=== PATIENT | male | born 1955 | race Caucasian/White ===

== ENCOUNTER 2016-11-06 07:04 | Emergency (ER) | payer BC, OTHER ==
[~2016-11-06] VITALS: Ht 182.9 cm; Wt 111.1 kg
--- NOTE | 2016-11-06 07:19 | ED Fall/Injury ---
General Stated Complaint: SURGERY SITE COMPLICATIONS Source: patient, family Exam Limitations: no limitations History of Present Illness Time seen by provider: 07:10 Initial Comments Patient had surgery yesterday around noon and umbilical hernia repair with Dr. Morales at [place]. He was doing okay at the time he departed that after he got home and the nausea medicines wore off he started having a lot of nausea and vomiting and is feeling very puny. This pain was fairly well controlled with the hydrocodone at home. They'll the night he got up because of the nausea and had a fall and landed with his belly right on the site where he had the umbilical repair on the arm of a couch and then his family member says she found him stiff as a board laying on the floor for a few seconds unable to respond to any questions. He states he did not lose consciousness. However he feels that the nausea is getting better. He rates his pain as a 3 out of 10 and took a hydrocodone prior to coming to the ER. EMS reports his vitals been stable. When they sat him up on the side of the bed a lot of blood poured from the wound. They placed a pressure dressing over the umbilicus. The patient denies chest pain but states he is now short of breath. He states that his abdomen is no more distended today than yesterday but his family member says this is much more distended. He says he has little to no nausea at this time as pain is under control and he was able to drink some Gatorade last night and keep it down without throwing up prior to the fall. He states he did not hit his head. Patient also reports that he has not had to urinate since prior to surgery yesterday morning. weighs 245# per pt. PCP Dr Regan in [place], [place]. Allergies and Home Medications Allergies Uncoded Allergies: SULFA (Allergy, Severe, 11/06/16) Constitutional: No chills, No fever, No malaise Eyes: Denies Blurred Vision, Denies Drainage Ears, Nose, Mouth, Throat: denies nose pain, denies nose discharge, denies epistaxis Respiratory: No cough, short of breath, No wheezing Cardiovascular: No chest pain, No edema, No syncope Gastrointestinal: see HPI, abdominal pain, No constipation, No diarrhea, nausea , vomiting Genitourinary: decreased output (last urine was prior to Surgery), No dysuria, No frequency, hesitancy, No incontinence Musculoskeletal: No back pain, No joint pain Skin: No pruritus, No rash Psychiatric/Neurological: Denies Headache, Denies Numbness Past [id number]-Fecdwd Hx Patient Social History Alcohol Use: Denies Use Recreational Drug Use: No Smoking Status: Never a Smoker Physical Exam Vital Signs Capillary Refill : General Appearance: WD/WN, no apparent distress HEENT: PERRL/EOMI, normal ENT inspection Neck: non-tender, supple, normal inspection Cardiovascular: normal peripheral pulses, regular rate, rhythm, no edema Respiratory: chest non-tender, lungs clear, normal breath sounds Peripheral Pulses: 3+ Dorsalis Pedis (R), 3+ Left Dors-Pedis (L), 3+ Radial Pulses (R), 3+ Radial Pulses (L) Gastrointestinal: normal bowel sounds, no organomegaly, no pulsatile mass, distended Back: normal inspection, no CVA tenderness, no vertebral tenderness Extremities: normal range of motion, non-tender, normal inspection, no pedal edema, no calf tenderness Neurologic/Psychiatric: 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 II-XII nml as tested, alert, oriented x 3 Skin: normal color, warm/dry, other (surgical wound around umbilicus is approximated clean with oozing of small amount of bright red blood and tender to palpation.) Progress/Results/Core Measures Results/Orders Lab Results Laboratory Tests Test 11/06/16 07:10 11/06/16 07:33 11/06/16 07:40 11/06/16 09:28 Range/Units White Blood Count 29.2 H 4.3-11.0 10^3/uL Red Blood Count 3.87 L 4.35-5.85 10^6/uL Hemoglobin 11.2 L 13.3-17.7 G/DL Hematocrit 34 L 40-54 % Mean Corpuscular Volume 87 80-99 FL Mean Corpuscular Hemoglobin 29 25-34 PG Mean Corpuscular Hemoglobin Concent 33 32-36 G/DL Red Cell Distribution Width 13.9 10.0-14.5 % Platelet Count 269 130-400 10^3/uL Mean Platelet Volume 10.7 H 7.4-10.4 FL Neutrophils (%) (Auto) 84 H 42-75 % Lymphocytes (%) (Auto) 5 L 12-44 % Monocytes (%) (Auto) 11 0-12 % Eosinophils (%) (Auto) 0 0-10 % Basophils (%) (Auto) 0 0-10 % Neutrophils # (Auto) 24.7 H 1.8-7.8 X 10^3 Lymphocytes # (Auto) 1.5 1.0-4.0 X 10^3 Monocytes # (Auto) 3.1 H 0.0-1.0 X 10^3 Eosinophils # (Auto) 0.0 0.0-0.3 10^3/uL Basophils # (Auto) 0.0 0.0-0.1 10^3/uL Neutrophils % (Manual) 79 % Lymphocytes % (Manual) 5 % Monocytes % (Manual) 13 % Eosinophils % (Manual) 3 % Blood Morphology Comment NORMAL Sodium Level 137 135-145 MMOL/L Potassium Level 4.2 3.6-5.0 MMOL/L Chloride Level 103 98-107 MMOL/L Carbon Dioxide Level 18 L 21-32 MMOL/L Anion Gap 16 H 5-14 MMOL/L Blood Urea Nitrogen 24 H 7-18 MG/DL Creatinine 2.26 H 0.60-1.30 MG/DL Estimat Glomerular Filtration Rate 30 BUN/Creatinine Ratio 11 Glucose Level 188 H 70-105 MG/DL Calcium Level 8.7 8.5-10.1 MG/DL Phosphorus Level 4.0 2.3-4.7 MG/DL Magnesium Level 2.0 1.8-2.4 MG/DL Total Bilirubin 0.4 0.1-1.0 MG/DL Aspartate Amino Transf (AST/SGOT) 11 5-34 U/L Alanine Aminotransferase (ALT/SGPT) 24 0-55 U/L Alkaline Phosphatase 38 L 40-136 U/L Total Protein 6.4 6.4-8.2 G/DL Albumin 4.0 3.2-4.5 G/DL Lactic Acid Level 4.35 *H 0.50-2.00 MMOL/L Urine Color YELLOW Urine Clarity SLIGHTLY CLOUDY Urine pH 5 5-9 Urine Specific [place] 1.020 1.016-1.022 Urine Protein 1+ H NEGATIVE Urine Glucose (UA) 2+ H NEGATIVE Urine Ketones NEGATIVE NEGATIVE Urine Nitrite NEGATIVE NEGATIVE Urine Bilirubin NEGATIVE NEGATIVE Urine Urobilinogen NORMAL NORMAL MG/DL Urine Leukocyte Esterase NEGATIVE NEGATIVE Urine RBC (Auto) NEGATIVE NEGATIVE Urine RBC NONE /HPF Urine WBC 0-2 /HPF Urine Squamous Epithelial Cells 0-2 /HPF Urine Crystals NONE /LPF Urine Bacteria NEGATIVE /HPF Urine Casts PRESENT /LPF Urine Hyaline Casts 0-2 H /LPF Urine Mucus SMALL H /LPF Urine Culture Indicated NO My Orders Orders - ANKUSH JAQUEZ Saline Lock/Iv-Start (11/06/16 07:20) Cbc With Automated Diff (11/06/16 07:20) Comprehensive Metabolic Panel (11/06/16 07:20) Lactic Acid Analyzer (11/06/16 07:20) Magnesium (11/06/16 07:20) Ua Culture If Indicated (11/06/16 07:20) Type And Screen (11/06/16 07:20) Phosphorus (11/06/16 07:20) Chest 1 View, Ap/Pa Only (11/06/16 07:20) Vital Signs: Special (11/06/16 07:20) Consent-Obtain Consent For (11/06/16 07:20) Monitor S/S Transfusion Reacti (11/06/16 07:20) Ns Iv 500 Ml (Sodium Chloride 0.9%) (11/06/16 07:20) Saline Lock/Iv-Start (11/06/16 07:20) Ns Iv 1000 Ml (Sodium Chloride 0.9%) (11/06/16 07:20) Barrett Cath Insertion (11/06/16 07:25) Lidocaine 2% (Urojet) (Xylocaine Urojet) (11/06/16 07:30) Manual Differential (11/06/16 07:10) Blood Culture (11/06/16 07:39) Ct Abdomen/Pelvis Wo (11/06/16 07:20) Saline Lock/Iv-Start (11/06/16 07:57) Ns Iv 500 Ml (Sodium Chloride 0.9%) (11/06/16 07:57) Ns Iv 1000 Ml (Sodium Chloride 0.9%) (11/06/16 07:57) Ns Iv 1000 Ml (Sodium Chloride 0.9%) (11/06/16 08:30) Vancomycin Injection (Vancomycin Injecti (11/06/16 08:45) Ampicillin/Sulbactam Injection (Unasyn 1 (11/06/16 08:45) Medications Given in ED Current Medications Medications Dose Ordered Sig/Rahel Route Start Time Stop Time Status Last Admin Dose Admin Lidocaine HCl 10 ml ONCE ONCE TOP 11/06/16 07:30 11/06/16 07:31 DC 11/06/16 07:35 10 ML Sodium Chloride 1,000 ml @ 0 mls/hr Q0M ONCE IV 11/06/16 07:20 11/06/16 07:24 DC 11/06/16 07:20 1,000 MLS/HR Sodium Chloride 1,000 ml @ 0 mls/hr Q0M ONCE IV 11/06/16 07:57 11/06/16 07:59 DC 11/06/16 08:30 1,000 MLS/HR Vancomycin HCl 1000 mg/Sodium Chloride 250 ml @ 250 mls/hr ONCE ONCE IV 11/06/16 08:45 11/06/16 09:44 11/06/16 09:23 250 MLS/HR Progress Note #1: Time: 07:24 Progress Note Abdominal distention with bleeding from the surgical wound site. Possible he has injured it in the fall. We'll type and screen and get appropriate labs. We' ll get a CT of his abdomen with contrast and a liter fluids. His vitals are okay except for tachycardia. We'll place a Barrett catheter obtain a UA start working on his urinary retention Progress Note #2: Time: 09:52 Progress Note Patient was out found to have a high lactate as well as increased white blood cell count which could be from shock of surgery and fall and reinjury or could be from infection. With his history of mild shortness of breath and urinary retention there is some concern he may be having a UTI. 30 mils per kilogram were given and thinking Unasyn were started. Spoke with the surgery team and he was accepted as an ER to ER transfer for their evaluation and further management. The patient is stable at this time his blood pressures always been good. Diagnostic Imaging Diagonstic Imaging: Xray Plain Films/CT/US/NM/MRI: chest Comments [facility]IA [facility], [facility]. [place], [place] NAME: CECILIA FERRARI Hussain [facility] REC#: [id number] PT STATUS: REG ER : 1955 PHYSICIAN: ANKUSH JAQUEZ MD ADMIT DATE: 11/06/16/ER Draft Date of Exam:11/06/16 CHEST 1 VIEW, AP/PA ONLY INDICATION: Bloating and bleeding from surgical site. No prior examinations are available for comparison. FINDINGS: The heart size, mediastinal configuration, and pulmonary vascularity are within normal limits. There is no pleural effusion, pneumothorax, or pneumonia. The osseous structures are unremarkable. IMPRESSION: No acute cardiopulmonary abnormality. Dictated on workstation # [id number] Dict: 11/06/16 0828 Trans: 11/06/16 0842 [facility] [id number] Interpreted by: BARON TRACEY Electronically signed by: Reviewed: Reviewed by Me, Discussed w/Radiologist Diagonstic Imaging: CT Plain Films/CT/US/NM/MRI: abdomen Comments Non contrast. VIA [place], [place] NAME: CECILIA FERRARI [facility] REC#: [id number] PT STATUS: REG ER : 1955 PHYSICIAN: ANKUSH JAQUEZ MD ADMIT DATE: 11/06/16/ER Draft Date of Exam:11/06/16 CT ABDOMEN/PELVIS WO PROCEDURE: CT abdomen and pelvis without contrast. TECHNIQUE: Multiple contiguous axial images were obtained through the abdomen and pelvis without the use of intravenous contrast. INDICATION: Recent hernia surgery with bleeding from surgical site. There is also bloating. Contrast was not administered due to elevated creatinine. FINDINGS: The heart size is normal. There is some atelectasis and/or pneumonitis in both lung bases. The liver is normal in size. There is a cyst in the right lobe of the liver. There is no biliary ductal dilatation. Gallbladder is unremarkable. There is some perihepatic ascites. The spleen is unremarkable. There is perisplenic ascites. The pancreas and adrenal glands are unremarkable. There are chronic inflammatory changes about the kidneys bilaterally. The aorta is nonaneurysmal. The bowel gas pattern is nonspecific. There is some hyperdense fluid in the lower abdomen suspect for hematoperitoneum. There is a Barrett catheter in the bladder. Bowel gas pattern is nonspecific. There are bilateral inguinal hernias containing omental fat left greater than right. IMPRESSION: Moderate amount of hematoperitoneum in the lower abdominal cavity. Additionally, there is some more low-density perihepatic, perisplenic, and pelvic fluid. This may simply be postoperative. Recommend clinical correlation. Recent umbilical hernia repair. There is minimal induration in the anterior abdominal wall. Benign hepatic cyst. Barrett catheter in the bladder. Bilateral inguinal hernias left greater than right both containing only omental fat. These findings were conveyed directly to Dr. Jaquez in the [place] ER. Dictated on workstation # [id number] Dict: 11/06/16 0809 Trans: 11/06/16 0854 [id number] Interpreted by: BARON TRACEY Electronically signed by: Reviewed: Reviewed by Me, Discussed w/Radiologist Consults Consults #1: Consulting Physician: JOSE BLAKE DO Consults Notes Spoke wtih Dr Blake. He asked that I contact the Surgeon first adn if we want to keep the pt here he will come in and see the pt. 0955: Closed loop that the pt is being Transfered to [place] ED. Consults #2: Consults Notes 0900: Called [facility] and left a message. Trying to get in touch with the Surgeon , Dr Morales. 0930: Dr Blake called back to check in on Pt. Pt stable 0935: Carolina gale one-call [place] returned call. Dr Miller who is taking Call discussed pt and wants him sent ER to ER. 0940: Spoke to ER Dr. Nick. Explained the case adn he will be happy to see the pt. Departure Impression Impression: Primary Impression: Abdominal wall pain Additional Impressions: Hemoperitoneum Severe sepsis Disposition: 02 XFER SHT-TRM HOSP ([place] ED) Condition: Stable Transfer Transfer Notes Transfer by ground [facility] EMS to [place] ER. Dr. Nick accepting. Dr. Miller, General Surgery is covering for Dr. Morales Transfer Time: 09:48 Transfer Facility: [facility] Method of Transfer: EMS ANKUSH JAQUEZ Nov 06, 2016 07:19
[2016-11-06] MEDS ORDERED: NS IV 500 ML 500 ML IV SCH (07:20)
[2016-11-06] MEDS ORDERED: NS IV 1000 ML 1,000 ML IV ONE ×2 (07:20→07:57)
[2016-11-06 07:30] LABS: BASOPHILS % (AUTO) 0 % (0-10); EOSINOPHILS % (AUTO) 0 % (0-10); LYMPHOCYTES # (AUTO) 1.5 X 10^3 (1.0-4.0); LYMPHOCYTES % (AUTO) 5 % (12-44); MEAN CORPUSCULAR HEMOGLOBIN 29 PG (25-34); MEAN CORPUSCULAR HGB CONC 33 G/DL (32-36); MEAN CORPUSCULAR VOLUME 87 FL (80-99); MEAN PLATELET VOLUME 10.7 FL (7.4-10.4); MONOCYTES # (AUTO) 3.1 X 10^3 (0.0-1.0); MONOCYTES % (AUTO) 11 % (0-12); NEUTROPHILS # (AUTO) 24.7 X 10^3 (1.8-7.8); NEUTROPHILS % (AUTO) 84 % (42-75); PLATELET COUNT 269 10^3/uL (130-400); RED BLOOD COUNT 3.87 10^6/uL (4.35-5.85); RED CELL DISTRIBUTION WIDTH 13.9 % (10.0-14.5); WHITE BLOOD COUNT 29.2 10^3/uL (4.3-11.0)
[2016-11-06] MEDS ORDERED: LIDOCAINE UROJET 2% GEL 10 ML PKG TOP ONE (07:30)
[2016-11-06 07:44] LABS: BILIRUBIN,TOTAL 0.4 MG/DL (0.1-1.0); CALCIUM 8.7 MG/DL (8.5-10.1); CREATININE SERUM 2.26 MG/DL (0.60-1.30); POTASSIUM 4.2 MMOL/L (3.6-5.0); TOTAL PROTEIN 6.4 G/DL (6.4-8.2)
[2016-11-06] MEDS ORDERED: NS IV 500 ML 500 ML IV ONE (07:57)
[2016-11-06 08:08] LABS: BILIRUBIN,URINE NEGATIVE (NEGATIVE); KETONES,URINE NEGATIVE (NEGATIVE); LEUKOCYTE ESTERASE ,URINE NEGATIVE (NEGATIVE); NITRITE,URINE NEGATIVE (NEGATIVE); PH,URINE 5 (5-9); PROTEIN,URINE 1+ (NEGATIVE); UROBILINOGEN,URINE NORMAL (NORMAL)
[2016-11-06 08:21] LABS: HYALINE CASTS, URINE 0-2 /LPF; SQUAMOUS EPITHELIAL CELL,UR 0-2 /HPF; WBC,URINE 0-2 /HPF
[2016-11-06] MEDS ORDERED: NS IV 1000 ML 1,000 ML IV SCH (08:30)
[2016-11-06 08:40] LABS: EOSINOPHILS % (MANUAL) 3 %; LYMPHOCYTES % (MANUAL) 5 %; NEUTROPHILS % (MANUAL) 79 %
--- NOTE | 2016-11-06 08:42 | Diagnostic Imaging Report ---
INDICATION: Bloating and bleeding from surgical site. No prior examinations are available for comparison. FINDINGS: The heart size, mediastinal configuration, and pulmonary vascularity are within normal limits. There is no pleural effusion, pneumothorax, or pneumonia. The osseous structures are unremarkable. IMPRESSION: No acute cardiopulmonary abnormality. Dictated by: Dictated on workstation # [id number]
[2016-11-06] MEDS ORDERED: AMPICILLIN/SULBACTAM INJECTION 1.5 GM in NS (IVPB) 50 ML IV ONE (08:45)
[2016-11-06] MEDS ORDERED: VANCOMYCIN INJECTION 1,000 MG in NS (IVPB) 250 ML IV ONE (08:45)
--- NOTE | 2016-11-06 08:55 | Diagnostic Imaging Report ---
PROCEDURE: CT abdomen and pelvis without contrast. TECHNIQUE: Multiple contiguous axial images were obtained through the abdomen and pelvis without the use of intravenous contrast. INDICATION: Recent hernia surgery with bleeding from surgical site. There is also bloating. Contrast was not administered due to elevated creatinine. FINDINGS: The heart size is normal. There is some atelectasis and/or pneumonitis in both lung bases. The liver is normal in size. There is a cyst in the right lobe of the liver. There is no biliary ductal dilatation. Gallbladder is unremarkable. There is some perihepatic ascites. The spleen is unremarkable. There is perisplenic ascites. The pancreas and adrenal glands are unremarkable. There are chronic inflammatory changes about the kidneys bilaterally. The aorta is nonaneurysmal. The bowel gas pattern is nonspecific. There is some hyperdense fluid in the lower abdomen suspect for hematoperitoneum. There is a Barrett catheter in the bladder. Bowel gas pattern is nonspecific. There are bilateral inguinal hernias containing omental fat left greater than right. IMPRESSION: Moderate amount of hematoperitoneum in the lower abdominal cavity. Additionally, there is some more low-density perihepatic, perisplenic, and pelvic fluid. This may simply be postoperative. Recommend clinical correlation. Recent umbilical hernia repair. There is minimal induration in the anterior abdominal wall. Benign hepatic cyst. Barrett catheter in the bladder. Bilateral inguinal hernias left greater than right both containing only omental fat. These findings were conveyed directly to Dr. Jaquez in the [facility]. Dictated by: Dictated on workstation # [id number]
[2016-11-06] MEDS ORDERED: LISI-552 (10:05)
[2016-11-06] MEDS ORDERED: HYDR12.56 (10:05)
[2016-11-06] MEDS ORDERED: HYDR-3812 (10:05)
[2016-11-06 10:38] VITALS: BP 111/81
== END 2016-11-06 10:38 | disposition short-term general hospital (02) ==
LOC: EDUNIT# 07:04 → ER 07:08
DX: T81.4XXA Infection following a procedure, initial encounter (principal); K91.840 Postprocedural hemorrhage of a digestive system organ or structure following a digestive system procedure; K66.1 Hemoperitoneum; A41.9 Sepsis, unspecified organism
CPT/HCPCS: 36415; 51702; 71010; 74176; 80053; 81000; 83605; 83735; 84100; 85007; 85027; 86850; 86900; 86901; 87040

== ENCOUNTER 2021-02-22 19:40 | Emergency (ER) | payer BC ==
[~2021-02-22] VITALS: Ht 183 cm; Wt 106.6 kg
[~2021-02-22 19:40] MED LIST: ACHD5005; HYDR12.56; LISI20TA26
[2021-02-22] MEDS ORDERED: TETANUS,DIPTH,PERTUSS P/F (BOOSTRIX) 0.5 ML VIAL IM ONE (19:45)
[2021-02-22] MEDS ORDERED: AMLO-251 (19:58)
[2021-02-22] MEDS ORDERED: MELO15TA39 (19:58)
[2021-02-22] MEDS ORDERED: ATOR20TA66 (19:58)
[2021-02-22] MEDS ORDERED: ONDA4TAB11 PO (20:07)
--- NOTE | 2021-02-22 20:07 | ED Fall/Injury ---
General Chief Complaint: Trauma-Non Activation Stated Complaint: FALL - R EYE BROW LAC Source: patient Exam Limitations: no limitations History of Present Illness Date Seen by Provider: Feb 22, 2021 Time Seen by Provider: 19:47 Initial Comments Patient to ER by private conveyance from home with his and chief complaint that about 5-5 30, 1/2 hours prior to arrival he was standing on a bench lifting some 4 x 8 sheets of plywood over his head and the bench was wobbly and he lost his balance falling landing on the right frontal forehead and temporal lobe of his head. He is not having any pain in his neck. No weakness numbness. He says he walked a few moments after the fall happened. Is not hurting anywhere but his forehead and came in because he could not get the bleeding to stop from the cut on the side of his head. He is not having any nausea. He is not on any blood thinners or aspirin. Follows with Dr. Regan from [place]. He has not had a tetanus vaccine in the last 5 years Allergies and Home Medications Allergies Uncoded Allergies: SULFA (Allergy, Severe, 11/06/16) Patient Home Medication List Home Medication List Reviewed: Yes Amlodipine Besylate (Amlodipine Besylate) 10 Mg Tablet, (Reported) Entered as Reported by: ELLE NIETO on 02/22/211957 Last Action: New Order Atorvastatin Calcium (Atorvastatin Calcium) 20 Mg Tablet, (Reported) Entered as Reported by: ELLE NIETO on 02/22/211957 Last Action: New Order Hydrochlorothiazide (Hydrochlorothiazide) 12.5 Mg Tablet, (Reported) Entered as Reported by: MORGAN BRITO on 11/06/16 1005 Last Action: Last Taken Edited Meloxicam (Meloxicam) 15 Mg Tablet, (Reported) Entered as Reported by: ELLE NIETO on 02/22/211957 Last Action: New Order Ondansetron (Ondansetron Odt) 4 Mg Tab.rapdis, 4 MG PO Q6H PRN for NAUSEA/VOMITING Prescribed by: ANKUSH ESTEVEZ on 02/22/212006 Discontinued Medications Hydrocodone Bit/Acetaminophen (Lortab 5 Mg Tablet) 1 Each Tablet, (Reported) Discontinued Reason: No Longer Taking Entered as Reported by: MORGAN BRITO on 11/06/16 1005 Last Action: Discontinued Lisinopril (Lisinopril) 20 Mg Tablet, (Reported) Discontinued Reason: No Longer Taking Entered as Reported by: MORGAN BRITO on 11/06/16 1005 Last Action: Discontinued Review of Systems Review of Systems Constitutional: No chills, No diaphoresis Eyes: Denies Blindness, Denies Blurred Vision, Denies Drainage Ears, Nose, Mouth, Throat: denies ear pain, denies ear discharge Respiratory: No cough, No short of breath Cardiovascular: No edema, No Hx of Intervention, No palpitations Gastrointestinal: No abdominal pain, No nausea, No vomiting Genitourinary: No discharge, No dysuria Musculoskeletal: No back pain, No joint pain Skin: see HPI All Other Systems Reviewed Negative Unless Noted: Yes Past Akgkqgu-Iuladm-Phdqzl Hx Patient Social History Tobacco Use?: No Substance use?: No Alcohol Use?: Yes Alcohol Frequency: Once in a while Pt feels they are or have been: No Past Medical History Surgery/Hospitalization HX: htn, high cholesterol Surgeries: Yes (HERNIA REPAIR) Respiratory: No Cardiac: Yes Hypertension Physical Exam Vital Signs Vital Signs - First Documented 02/22/21 19:50 Temp 36.6 Pulse 95 Resp 16 B/P (MAP) 157/105 (122) Pulse Ox 97 O2 Delivery Room Air Capillary Refill : Height, Weight, BMI Height: 6'0" Weight: 245lbs. oz. 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, no motor/sensory deficits, alert, normal mood/affect, oriented x 3 Skin: other (Superficial abrasion and ecchymosis as well as swelling over the right orbit laterally) Leo Coma Score Best Eye Response: (4) Open Spontaneously Best Verbal Response: (5) Oriented Best Motor Response: (6) Obeys Commands Dariana Total: 15 Procedures/Interventions Wound Location: Face Other Wound Location Right lateral to the orbit Wound Length (cm): 1 Wound's Depth, Shape: superficial, irregular Wound Explored: clean Irrigated w/ Saline (ccs): 200 Betadine Prep?: Yes (Chlorhexidine and sterile saline) Other Closure Supply: Wound Adhesive Progress Wound was cleaned and debrided with sterile gauze, chlorhexidine and sterile saline. Rinsed with sterile saline and after had dried and was hemostatic we applied 2 applications of cyanoacrylate which appeared to give good results. Wound is hemostatic and the patient tolerated procedure well Progress/Results/Core Measures Results/Orders My Orders Orders - ANKUSH ESTEVEZ Ct Head/Face/Cervical Wo (02/22/21 20:00) Medications Given in ED Current Medications Medications Dose Ordered Sig/Rahel Route Start Time Stop Time Status Last Admin Dose Admin Diphtheria/ Tetanus/Acell Pertussis 0.5 ml ONCE ONCE IM 02/22/21 19:45 02/22/21 19:46 DC 02/22/21 20:18 0.5 ML Vital Signs/I&O 02/22/21 19:50 Temp 36.6 Pulse 95 Resp 16 B/P (MAP) 157/105 (122) Pulse Ox 97 O2 Delivery Room Air Progress Progress Note : Time: 20:04 Progress Note Declining to pain. Plan to get a CT of his head, face and neck to rule out fracture intracranial bleed etc. Could possibly close the wound with some glue. Diagnostic Imaging Diagonstic Imaging: CT Plain Films/CT/US/NM/MRI: facial bones, c-spine, head Comments NAME: CECILIA FERRARI JR MED REC#: [id number] PT STATUS: REG ER : 1955 PHYSICIAN: ANKUSH ESTEVEZ MD ADMIT DATE: 02/22/21/ER Draft Date of Exam:02/22/21 CT HEAD/FACE/CERVICAL WO EXAMINATION: CT head, face and CT cervical spine without contrast. TECHNIQUE: Multiple contiguous axial images were obtained through the face, brain and cervical spine without the use of intravenous contrast. Sagittal and coronal reformations through the cervical spine were then performed. All CT scans use one or more of the following dose optimizing techniques: automated exposure control, MA and/or KvP adjustment based on patient size and exam type or iterative reconstruction. HISTORY: Trauma with injury to the head, face and neck. COMPARISON: None available. FINDINGS: CT HEAD: Mild diffuse cerebral volume loss with proportional enlargement of the ventricles and sulci. Chronic lacunar infarcts of the left and right basal ganglia. No acute intracranial hemorrhage or abnormal extra-axial fluid collections are present. Calcification of the intracranial ICAs. No hyperdense vessel. The calvarium is intact. The mastoid air cells are clear. The visualized paranasal sinuses are clear. The orbits are normal. There is right frontal scalp and periorbital soft tissue swelling. CT CERVICAL SPINE: Vertebral body height and alignment are preserved. No acute fracture, dislocation, or destructive osseous process. Mild facet hypertrophy without perched facets. Mild multilevel cervical spondylosis. The paraspinous soft tissues are normal. The visualized thyroid gland is normal. The visualized lung apices are normal. CT FACE: No fracture is seen in the face. The nasal bones are normal. Mandible and maxillae are normal. Zygomatic arches are normal. Pterygoid plates are normal. Right frontal scalp and periorbital soft tissue swelling. IMPRESSION: 1. No acute intracranial abnormality. 2. No cervical spine fracture. 3. Right frontal scalp and periorbital soft tissue swelling without underlying facial or calvarial fracture. Dictated on workstation # [id number] Dict: 02/22/212030 Trans: 02/22/212041 [facility] [id number] Interpreted by: ELLE MARR DO Electronically signed by: Reviewed: Reviewed by Me Departure Impression Primary Impression: Fall Qualified Codes: W19.XXXA - Unspecified fall, initial encounter Additional Impressions: Laceration of face Qualified Codes: S01.81XA - Laceration without foreign body of other part of head, initial encounter Contusion of face Qualified Codes: S00.83XA - Contusion of other part of head, initial encounter Concussion Qualified Codes: S06.0X1A - Concussion with loss of consciousness of 30 minutes or less, initial encounter Disposition: 01 HOME, SELF-CARE Condition: Stable Departure-Patient Inst. Decision time for Depature: 20:45 Referrals: JUAN JOSÉ REGAN DO (PCP/Family) Primary Care Physician Patient Instructions: Concussion, Adult ED, Laceration Repair With Glue (DC) Add. Discharge Instructions: Drink plenty fluids and get sleep for the next day or 2. Rest your brain. Tylenol Motrin as necessary for pain. If you are getting a worsening headache, balance, nausea when you are overdoing your concussion and you need to take rest and get some sleep. Zofran 1 tablet every 6 hours as necessary for nausea or vomiting. Glue will flake off on its own over the next 7 to 10 days and you do not need to do anything other than keep the skin around it clean with regular soap and water, shampoo, body wash etc. If you are in a carlos, dirty environment and you should cover the wound with a gauze dressing. All discharge instructions reviewed with patient and/or family. Voiced understanding. Scripts Ondansetron (Ondansetron Odt) 4 Mg Tab.rapdis 4 MG PO Q6H PRN for NAUSEA/VOMITING, #8 TAB 0 Refills Prov: ANKUSH ESTEVEZ 02/22/21 ANKUSH ESTEVEZ Feb 22, 2021 20:07
--- NOTE | 2021-02-22 20:43 | Diagnostic Imaging Report ---
EXAMINATION: CT head, face and CT cervical spine without contrast. TECHNIQUE: Multiple contiguous axial images were obtained through the face, brain and cervical spine without the use of intravenous contrast. Sagittal and coronal reformations through the cervical spine were then performed. All CT scans use one or more of the following dose optimizing techniques: automated exposure control, MA and/or KvP adjustment based on patient size and exam type or iterative reconstruction. HISTORY: Trauma with injury to the head, face and neck. COMPARISON: None available. FINDINGS: CT HEAD: Mild diffuse cerebral volume loss with proportional enlargement of the ventricles and sulci. Chronic lacunar infarcts of the left and right basal ganglia. No acute intracranial hemorrhage or abnormal extra-axial fluid collections are present. Calcification of the intracranial ICAs. No hyperdense vessel. The calvarium is intact. The mastoid air cells are clear. The visualized paranasal sinuses are clear. The orbits are normal. There is right frontal scalp and periorbital soft tissue swelling. CT CERVICAL SPINE: Vertebral body height and alignment are preserved. No acute fracture, dislocation, or destructive osseous process. Mild facet hypertrophy without perched facets. Mild multilevel cervical spondylosis. The paraspinous soft tissues are normal. The visualized thyroid gland is normal. The visualized lung apices are normal. CT FACE: No fracture is seen in the face. The nasal bones are normal. Mandible and maxillae are normal. Zygomatic arches are normal. Pterygoid plates are normal. Right frontal scalp and periorbital soft tissue swelling. IMPRESSION: 1. No acute intracranial abnormality. 2. No cervical spine fracture. 3. Right frontal scalp and periorbital soft tissue swelling without underlying facial or calvarial fracture. Dictated by: Dictated on workstation # [id number]
[2021-02-22 20:50] VITALS: BP 135/95
== END 2021-02-22 20:52 | disposition home or self-care (01) ==
LOC: EDUNIT# 19:40 → ER 19:41
DX: S06.0X0A Concussion without loss of consciousness, initial encounter (principal); S05.41XA Penetrating wound of orbit with or without foreign body, right eye, initial encounter; I10 Essential (primary) hypertension; E78.00 Pure hypercholesterolemia, unspecified; R40.2410 Glasgow coma scale score 13-15, unspecified time; Z23 Encounter for immunization; Z79.899 Other long term (current) drug therapy; X50.0XXA Overexertion from strenuous movement or load, initial encounter
CPT/HCPCS: 70450; 70486; 72125; 90715